=== PATIENT | male | born 1980 | race Caucasian/White ===

== ENCOUNTER 2016-09-03 21:54 | Emergency (ER) | payer MEDICAID, OTHER, SELFPAY ==
[~2016-09-03] VITALS: Ht 177.8 cm; Wt 79.6 kg
[2016-09-03] MEDS ORDERED: AZITHROMYCIN 250 MG TAB PO ONE (23:00)
[2016-09-04 00:42] VITALS: BP 127/65
== END 2016-09-04 00:45 | disposition home or self-care (01) ==
LOC: M ED 21:54
DX: Z20.2 Contact with and (suspected) exposure to infections with a predominantly sexual mode of transmission (principal); A74.9 Chlamydial infection, unspecified; F17.210 Nicotine dependence, cigarettes, uncomplicated

== ENCOUNTER 2016-09-22 21:52 | Emergency (ER) | payer MEDICAID ==
[~2016-09-22] VITALS: Ht 177.8 cm; Wt 79.5 kg
[2016-09-22 21:53] VITALS: BP 146/79
[2016-09-22] MEDS ORDERED: DOXY-278 PO (23:37)
[2016-09-22] MEDS ORDERED: DOXYCYCLINE HYCLATE 100 MG TAB PO ONE (23:45)
== END 2016-09-22 23:58 | disposition home or self-care (01) ==
LOC: M ED 21:52
DX: Z20.2 Contact with and (suspected) exposure to infections with a predominantly sexual mode of transmission (principal); R30.0 Dysuria; Z72.0 Tobacco use

== ENCOUNTER 2017-10-27 17:16 | Emergency (ER) | payer SELFPAY, MEDICAID ==
[2017-10-27 19:09] LABS: BASO % 0.3 % (0.0-1.0); EOS # 0.1 10^3/uL (0.0-0.50); EOS % 0.6 % (0.0-3.0); HEMATOCRIT 50.2 % (42.0-52.0); HEMOGLOBIN 17.1 g/dl (13.5-17.5); IMMATURE GRANULOCYTE % 0.4 % (0-3.0); LYMPH # 1.3 10^3/uL (1.5-4.5); LYMPH % 11.9 % (24.0-44.0); MEAN CORPUSCULAR HEMOGLOBIN 30.1 pg (27.0-33.0); MEAN CORPUSCULAR HGB CONC 34.1 g/dl (32.0-36.5); MEAN CORPUSCULAR VOLUME 88.4 fl (80.0-96.0); MONO # 0.6 10^3/uL (0.0-0.8); MONO % 5.6 % (0.0-5.0); NEUTROPHILS # 9.1 10^3/uL (1.8-7.7); NEUTROPHILS % 81.2 % (36.0-66.0); PLATELET COUNT, AUTOMATED 220 10^3/uL (150-450); RED BLOOD COUNT 5.68 10^6/uL (4.30-6.10); RED CELL DISTRIBUTION WIDTH 13.6 % (11.5-14.5); WHITE BLOOD COUNT 11.2 10^3/uL (4.0-10.0)
[2017-10-27 19:23] LABS: ANION GAP 6 MEQ/L (8-16); BLOOD UREA NITROGEN 8 MG/DL (7-18); CALCIUM LEVEL 9.3 MG/DL (8.5-10.1); CARBON DIOXIDE LEVEL 28 MEQ/L (21-32); CHLORIDE LEVEL 103 MEQ/L (98-107); CK-MB VALUE MASS 2.4 NG/ML (<3.6); CPK CREATINE PHOSPHOKINASE 134 U/L (39-308); CREATININE FOR GFR 1.14 MG/DL (0.70-1.30); GLOMERULAR FILTRATION RATE > 60.0 (>60); GLUCOSE, FASTING 98 MG/DL (70-100); MB/CK RELATIVE INDEX 1.79 (< OR =4); POTASSIUM SERUM 3.8 MEQ/L (3.5-5.1); SODIUM LEVEL 137 MEQ/L (136-145); TROPONIN I < 0.02 NG/ML (< 0.10)
[2017-10-27] MEDS: NS 500 ML IV (20:30)
[2017-10-27 21:39] LABS: CPK CREATINE PHOSPHOKINASE 114 U/L (39-308); TROPONIN I < 0.02 NG/ML (< 0.10)
[2017-10-27 21:40] LABS: CK-MB VALUE MASS 1.9 NG/ML (<3.6); MB/CK RELATIVE INDEX 1.66 (< OR =4)
== END 2017-10-27 22:18 | disposition home or self-care (01) ==
LOC: M ED 17:16
DX: R07.89 Other chest pain (principal); R50.9 Fever, unspecified; F17.200 Nicotine dependence, unspecified, uncomplicated
CPT/HCPCS: 71045

== ENCOUNTER 2020-08-27 17:20 | Emergency (ER) | payer OTHER, SELFPAY ==
[~2020-08-27] VITALS: Ht 177.8 cm; Wt 97.9 kg
[~2020-08-27 17:20] MED LIST: DOXY-350 PO
[2020-08-27 18:45] LABS: AMPHETAMINES LEVEL URINE NEGATIVE (NEGATIVE); BARBITURATES URINE NEGATIVE (NEGATIVE); BENZODIAZEPINES URINE NEGATIVE (NEGATIVE); CANNABINOIDS URINE NEGATIVE (NEGATIVE); COCAINE METABOLITE URINE NEGATIVE (NEGATIVE); METHADONE URINE NEGATIVE (NEGATIVE); OPIATES URINE NEGATIVE (NEGATIVE); PHENCYCLIDINE URINE NEGATIVE (NEGATIVE)
--- NOTE | 2020-08-27 18:57 | REP ---
INDICATION: sob COMPARISON: 10/27/2017 TECHNIQUE: Portable AP view of the chest FINDINGS: The mediastinum and cardiac silhouette are stable and within normal limits for portable technique. The lung patterson are clear without acute consolidation, effusion, or pneumothorax. Skeletal structures are intact. IMPRESSION: No acute cardiopulmonary process appreciated. <Electronically signed by Derek Dillard > 08/27/20 [id number]
[2020-08-27 19:03] LABS: ALT/SGPT 37 U/L (12-78); BLOOD UREA NITROGEN 10 MG/DL (7-18); CARBON DIOXIDE LEVEL 28 MEQ/L (21-32); CHLORIDE LEVEL 100 MEQ/L (98-107); CK-MB VALUE MASS 10.8 NG/ML (<3.6); CPK CREATINE PHOSPHOKINASE 399 U/L (39-308); CREATININE FOR GFR 1.15 MG/DL (0.70-1.30); GLOMERULAR FILTRATION RATE > 60.0 (>60); GLUCOSE, FASTING 112 MG/DL (70-100); MB/CK RELATIVE INDEX 2.71 (< OR =4); POTASSIUM SERUM 3.3 MEQ/L (3.5-5.1); SODIUM LEVEL 134 MEQ/L (136-145)
[2020-08-27 19:04] LABS: ALBUMIN 4.6 GM/DL (3.2-5.2); BILIRUBIN,DIRECT 0.2 MG/DL (0.0-0.2); NT-PRO BNP 54 PG/ML (<125); THYROXINE (T4) 11.8 UG/DL (4.5-12.0); TOTAL PROTEIN 8.4 GM/DL (6.4-8.2); TROPONIN I < 0.02 NG/ML (< 0.10)
--- NOTE | 2020-08-27 19:22 | ECGEPIP ---
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
[2020-08-27] MEDS ORDERED: NS 500 ML IV ONE (19:45)
[2020-08-27 20:16] LABS: HEMOGLOBIN A1c 5.3 %
[2020-08-27 21:43] VITALS: BP 125/65
== END 2020-08-27 21:45 | disposition home or self-care (01) ==
LOC: M ED 17:20
DX: E86.0 Dehydration (principal); F41.0 Panic disorder [episodic paroxysmal anxiety]; F17.200 Nicotine dependence, unspecified, uncomplicated

== ENCOUNTER → 2021-01-25 | Outpatient (REF) | payer OTHER | LOC: M LAB REF 11:35 | PROVIDERS: ATTEND Nurse Practitioner Family | DX: J06.9 Acute upper respiratory infection, unspecified (principal) ==